=== PATIENT | male | born 1960 | race Caucasian/White ===

== ENCOUNTER 2021-11-18 10:13 | Emergency (ER) | payer BC ==
[~2021-11-18] VITALS: Ht 170.2 cm; Wt 78.7 kg
[2021-11-18] MEDS ORDERED: FLONASE ALLERG9.9 ML NS (11:31)
[2021-11-18 12:28] LABS: HEMATOCRIT 42.9 % (42.0-52.0); HEMOGLOBIN 14.4 g/dL (13.5-18.0); MEAN CELL VOLUME 90 fl (78-100); MEAN CORPUSCULAR HEMOGLOBIN 30 pg (27-31); MEAN CORPUSCULAR HGB CONC 34 g/dL (33-37); PLATELET COUNT 156 K/mm3 (130-400); RED BLOOD COUNT 4.77 M/mm3 (4.20-5.60); RED CELL DISTRIBUTION WIDTH 13.3 % (11.5-14.5); WHITE BLOOD COUNT 3.8 K/mm3 (4.8-10.8)
[2021-11-18 12:41] LABS: POTASSIUM 3.6 mmol/L (3.5-5.1)
[2021-11-18 12:55] LABS: LYMPHOCYTE 10 % (20-51); MONOCYTE 9 % (3-10); NEUTROPHILS 80 % (42-75)
[2021-11-18] MEDS ORDERED: AEROCHAMBER PL1 EAC2 MC (14:13)
[2021-11-18] MEDS ORDERED: RT ALBUTEROL CC18 GM IH (14:13)
[2021-11-18] MEDS ORDERED: DEXAMETHASONE6 M1 PO (14:13)
[2021-11-18] MEDS ORDERED: MORGIDOX 1X100100 MG PO (14:13)
[2021-11-18 14:25] VITALS: BP 141/89
== END 2021-11-18 14:25 | disposition home or self-care (01) ==
LOC: ED 10:13
PROVIDERS: Family Medicine
DX: U07.1 COVID-19 (principal); J12.82 Pneumonia due to coronavirus disease 2019